=== PATIENT | female | born 1990 | race African-American/Black ===

== ENCOUNTER 2019-11-27 09:00 | Emergency (ER) | payer MEDICAID ==
[~2019-11-27] VITALS: Ht 165.1 cm; Wt 73.0 kg
[2019-11-27] MEDS ORDERED: KETOROLAC 30MG/ML VIAL IM ONE (10:00)
[2019-11-27 10:26] VITALS: BP 111/68
== END 2019-11-27 10:28 | disposition home or self-care (01) ==
LOC: ER 09:00
DX: M25.512 Pain in left shoulder (principal); M25.511 Pain in right shoulder; M76.892 Other specified enthesopathies of left lower limb, excluding foot; M76.891 Other specified enthesopathies of right lower limb, excluding foot; M54.2 Cervicalgia; M54.5 Low back pain; X50.3XXA Overexertion from repetitive movements, initial encounter; Y93.89 Activity, other specified; Y92.89 Other specified places as the place of occurrence of the external cause; Y99.0 Civilian activity done for income or pay
CPT/HCPCS: 96372; 99283; J1885